=== PATIENT | male | born 1945 | race Caucasian/White ===

== ENCOUNTER → 2018-03-26 | Outpatient (CLI) | payer MEDICARE | END | disposition home or self-care (01) | LOC: RAD 10:47 | PROVIDERS: ATTEND Internal Medicine Cardiovascular Disease | DX: I45.10 Unspecified right bundle-branch block (principal); R94.31 Abnormal electrocardiogram [ECG] [EKG] | CPT/HCPCS: 78452; 93017; 93306; A9502 ==

== ENCOUNTER → 2020-12-05 | Outpatient (CLI) | payer MEDICARE ==
[~2020-12-05] MED LIST: ASPI81TA45 PO; ATOR40TA78 PO; BUSP15TA PO; CLON-364 PO
== END | disposition home or self-care (01) ==
LOC: STAR 12:31
PROVIDERS: ATTEND Student in an Organized Health Care Education/Training Program
DX: Z01.812 Encounter for preprocedural laboratory examination (principal); Z20.822 Contact with and (suspected) exposure to COVID-19; N32.89 Other specified disorders of bladder; I45.10 Unspecified right bundle-branch block
CPT/HCPCS: 93005; U0003

== ENCOUNTER 2020-12-09 21:50 | Observation (INO) | payer MEDICARE ==
[~2020-12-09] VITALS: Ht 188 cm; Wt 88.6 kg
[2020-12-09] MEDS: FENTANYL PF 100 MCG/2ML IV PRN ×4 (19:40→19:55)
[2020-12-09] MEDS: ACETAMINOPHEN 325 MG TABLET PO PRN (20:00)
[~2020-12-09 21:50] MED LIST changes: +ACETAMINOPHEN 650 MG/20.3 ML UDC ONE; +CEFAZOLIN 1,000 MG ONE; +CHLORHEXIDINE 15 ML UDC PO ONE; +FENTANYL PF 100 MCG/2ML ONE; +FENTANYL PF 250 MCG/5ML ONE; +GEMCITABINE HCL 1,000 MG in SODIUM CHLORIDE 0.9% 23.7 ML IS ONE; +GEMCITABINE HCL IS ONE; +HYDROmorphone 1 MG/ML, 1ML INJ IV PRN; +HYDROmorphone 1 MG/ML, 1ML INJ ONE; +LABETALOL 5MG/ML, 20ML IV PRN; +LACTATED RINGERS 1,000 ML IV SCH; +ONDANSETRON 2MG/ML, 2ML IVPush PRN; +ONDANSETRON 2MG/ML, 2ML ONE; +OPIUM/BELLADONNA SUPP.RECT 16.2-30 MG PR PRN; +OPIUM/BELLADONNA SUPP.RECT 16.2-60 MG ONE; +OPIUM/BELLADONNA SUPP.RECT 16.2-60 MG PR ONE; +OXYcodone 5 MG/5 ML ORAL.SOL UDC ONE; +OXYcodone 5 MG/5 ML ORAL.SOL UDC PO PRN; +PROMETHAZINE 25 MG/ML, 1ML IVPush PRN; +PROPOFOL 10 MG/ML, 20ML ONE; +amitriptyline PO; +azo PO; +flonase NAS; +hydrALAzine 20 MG/ML, 1ML IV PRN; +morphine SULFATE 10 MG/ML, 1ML IVPush PRN; +tamsulosin PO
[2020-12-09 22:36] VITALS: BP 151/78
[2020-12-09] MEDS ORDERED: BUSPIRONE 5 MG TABLET PO ONE (23:00)
[2020-12-09] MEDS ORDERED: BUSPIRONE 10 MG TABLET ONE ×2 (23:02)
[2020-12-09] MEDS: ACETAMINOPHEN 325 MG TABLET PO SCH (23:17)
[2020-12-10 00:29] VITALS: BP 137/82
[2020-12-10] MEDS: ACETAMINOPHEN 325 MG TABLET PO SCH ×3 (03:51→16:30)
[2020-12-10 05:03] VITALS: BP 119/65
[2020-12-10] MEDS: OXYcodone 5 MG/5 ML ORAL.SOL UDC PO PRN ×2 (06:16→15:32)
[2020-12-10 07:30] VITALS: BP 100/64
[2020-12-10] MEDS ORDERED: BUSPIRONE 5 MG TABLET PO SCH (09:00)
[2020-12-10] MEDS ORDERED: TAMSULOSIN 0.4 MG CAP.ER.24H PO SCH (09:00)
[2020-12-10] MEDS ORDERED: FLUTICASONE NASAL SPRAY 16GM NAS SCH (09:00)
[2020-12-10] MEDS ORDERED: DOCUSATE 100 MG CAPSULE PO SCH (09:00)
[2020-12-10] MEDS ORDERED: POLYETHYLENE GLYCOL 17 GM PACKET PO SCH (09:00)
[2020-12-10] MEDS ORDERED: BUSPIRONE 10 MG TABLET ONE (09:54)
[2020-12-10] MEDS ORDERED: TAMS-11 PO (12:20)
[2020-12-10 13:31] VITALS: BP 117/71
[2020-12-10] MEDS ORDERED: AMITRIPTYLINE 50 MG TABLET PO SCH (21:00)
[2020-12-10] MEDS ORDERED: ATORVASTATIN 20 MG TABLET PO SCH (21:00)
== END 2020-12-10 17:00 | disposition home or self-care (01) ==
LOC: OUT 21:50 → 4NE 22:12 → DCLOUNGE 12-10 16:46
PROVIDERS: ADMIT Student in an Organized Health Care Education/Training Program; ATTEND Student in an Organized Health Care Education/Training Program
DX: D49.4 Neoplasm of unspecified behavior of bladder (principal); N40.1 Benign prostatic hyperplasia with lower urinary tract symptoms; R31.29 Other microscopic hematuria; R31.0 Gross hematuria; N32.89 Other specified disorders of bladder; Z12.5 Encounter for screening for malignant neoplasm of prostate; Z87.891 Personal history of nicotine dependence; Z79.899 Other long term (current) drug therapy; Z79.82 Long term (current) use of aspirin
CPT/HCPCS: 51720; 52240; 88307; G0378; J0690; J2405; J2704; J3010; J7120; J9201

== ENCOUNTER → 2020-12-21 | Outpatient (CLI) | payer MEDICARE ==
[~2020-12-21] MED LIST changes: -ACETAMINOPHEN 650 MG/20.3 ML UDC ONE; -CEFAZOLIN 1,000 MG ONE; -CHLORHEXIDINE 15 ML UDC PO ONE; -FENTANYL PF 100 MCG/2ML ONE; -FENTANYL PF 250 MCG/5ML ONE; -GEMCITABINE HCL 1,000 MG in SODIUM CHLORIDE 0.9% 23.7 ML IS ONE; -GEMCITABINE HCL IS ONE; -HYDROmorphone 1 MG/ML, 1ML INJ IV PRN; -HYDROmorphone 1 MG/ML, 1ML INJ ONE; -LABETALOL 5MG/ML, 20ML IV PRN; -LACTATED RINGERS 1,000 ML IV SCH; +OMNIPAQUE 350 MG/ML, 100ML BOTTLE ONE; -ONDANSETRON 2MG/ML, 2ML IVPush PRN; -ONDANSETRON 2MG/ML, 2ML ONE; -OPIUM/BELLADONNA SUPP.RECT 16.2-30 MG PR PRN; -OPIUM/BELLADONNA SUPP.RECT 16.2-60 MG ONE; -OPIUM/BELLADONNA SUPP.RECT 16.2-60 MG PR ONE; -OXYcodone 5 MG/5 ML ORAL.SOL UDC ONE; -OXYcodone 5 MG/5 ML ORAL.SOL UDC PO PRN; -PROMETHAZINE 25 MG/ML, 1ML IVPush PRN; -PROPOFOL 10 MG/ML, 20ML ONE; +TAMS-11 PO; -hydrALAzine 20 MG/ML, 1ML IV PRN; -morphine SULFATE 10 MG/ML, 1ML IVPush PRN
[2020-12-21 12:47] LABS: CREATININE 1.13 mg/dL (0.7-1.3)
== END | disposition home or self-care (01) ==
LOC: RAD 12:06
PROVIDERS: ATTEND Student in an Organized Health Care Education/Training Program
DX: C67.9 Malignant neoplasm of bladder, unspecified (principal); R91.1 Solitary pulmonary nodule; K57.30 Diverticulosis of large intestine without perforation or abscess without bleeding; K40.20 Bilateral inguinal hernia, without obstruction or gangrene, not specified as recurrent; K43.9 Ventral hernia without obstruction or gangrene; R59.0 Localized enlarged lymph nodes
CPT/HCPCS: 36415; 71260; 74178; 82565; Q9967

== ENCOUNTER → 2021-02-27 | Outpatient (CLI) | payer MEDICARE | END | disposition home or self-care (01) | LOC: CFH 10:15 | PROVIDERS: ATTEND Pathology Hematology | DX: C79.51 Secondary malignant neoplasm of bone (principal); C67.8 Malignant neoplasm of overlapping sites of bladder; D70.1 Agranulocytosis secondary to cancer chemotherapy; Z51.11 Encounter for antineoplastic chemotherapy; R59.0 Localized enlarged lymph nodes; Z79.899 Other long term (current) drug therapy | CPT/HCPCS: 74177; Q9967 ==